=== PATIENT | female | born 1980 ===

== ENCOUNTER 2022-09-18 07:23 | Day surgery (SDC) | payer OTHER, SELFPAY ==
--- NOTE | 2022-09-17 13:08 | P.CONAN_ITS ---
Documented by User: La Ramsey NP 09/17/22 13:12 HPI - Anesthesia Eval Consult details Narrative: 42yo F for Upper Endoscopy and Colonoscopy [facility] Past Medical History Medical History (Updated 09/17/22 @ 13:10 by La Ramsey NP) Anemia Autoimmune disease Constipation Diabetes Heavy menses Seizure Surgical History Surgical History (Updated 09/18/22 @ 08:04 by Ashley Hartmann) H/O carpal tunnel repair H/O colonoscopy H/O elbow surgery H/O esophagogastroduodenoscopy Previous section Social History Social History Patient Tobacco Use Status: Never used Tobacco Use of substances other than those prescribed or required for medical reasons: No Are you DNR?: No Advance Directives: No Advance Directives Information Provided: Yes Meds Allergies Allergy/AdvReac Type Severity Reaction Status Date / Time citalopram [From Celexa] Allergy Unknown Seizure Verified 09/18/22 07:59 Home Medications Medication Instructions Recorded Confirmed Last Taken Type lamotrigine 25 mg tablet 3 tab PO BID 09/17/22 09/18/22 09/17/22 History metformin 500 mg tablet,extended 500 mg PO DAILY 09/17/22 09/18/22 09/16/22 History release 24 hr Exam Exam Date and Time: September 17, 2022 1308 Documented by User: Jn Grimes MD 09/18/22 13:24 [facility] Past Medical History Medical History (Updated 09/17/22 @ 13:10 by La Ramsey NP) Anemia Autoimmune disease Constipation Diabetes Heavy menses Seizure Functional capacity: independent ambulation Family History Family history of problems with anesthesia: No Surgical History Surgical History (Updated 09/18/22 @ 08:04 by Ashley Hartmann) H/O carpal tunnel repair H/O colonoscopy H/O elbow surgery H/O esophagogastroduodenoscopy Previous section History of Problems with Anesthesia: No Social History Social History Patient Tobacco Use Status: Never used Tobacco Use of substances other than those prescribed or required for medical reasons: No Are you DNR?: No Advance Directives: No Advance Directives Information Provided: Yes Meds Allergies Allergy/AdvReac Type Severity Reaction Status Date / Time citalopram [From Celexa] Allergy Unknown Seizure Verified 09/18/22 07:59 Home Medications Medication Instructions Recorded Confirmed Last Taken Type lamotrigine 25 mg tablet 3 tab PO BID 09/17/22 09/18/22 09/17/22 History metformin 500 mg tablet,extended 500 mg PO DAILY 09/17/22 09/18/22 09/16/22 History release 24 hr Exam Airway Mallampati Class: III TM Dist: >3cm Neck ROM: Full Loose/Missing/Broken Teeth: Yes Heart: S1,S2 Lungs: b/l breath sounds Assessment and Plan Assessment Anesthesia Assessment: Anesthesia Plan Discussed and Chart Reviewed Final Anesthetic Review Family History of Problems with Anesthesia: No History of Problems with Anesthesia: No NPO: Yes ASA Class: II Final Preanesthetic Review: Meds/Allgs Chart Reviewed, Consent Obtained/Reviewed and Anes Risks/Benef Reviewed Patient Risk: Intermediate Procedure Risk: Intermediate Anesthetic Plan Anesthetic Plan: MAC: Disposition: Standard PACU
[2022-09-18 08:04] VITALS: BP 108/48; PULSE 77; RESP 16; TEMP 36.5; O2SAT 100; BMI 23.3
[2022-09-18 08:13] LABS: Glucose, Whole Blood 193 mg/dL (60-115)
[2022-09-18 08:13] LABS: UPreg QC Valid YES; Urine Pregnancy NEGATIVE (NEGATIVE)
[2022-09-18] MEDS: Lactated Ringers 1,000 ML 100 ML IVCONT (08:24)
[2022-09-18] MEDS: Sodium Phosphate,Mono-Dibasic 133 ML ENEMA PR (09:05)
--- NOTE | 2022-09-18 10:34 | P.BOP_ITS ---
Brief Operative Note Date of Service: 09/18/22 Pre-op diagnosis: Iron deficiency anemia, Constipation Post-op diagnosis: other (R/O celiac disease, R/O H.pylori, Internal hemorrhoids) Procedure: EGD with biopsies, Colonoscopy to the cecum and TI Surgeon: Josh Lloyd Anesthesia: MAC Was an Circular Ripsaw Operator used for this Procedure?: No Estimated blood loss (mL): 2.0 Pathology: other (A. Descending duodenum B. Gastric antrum) Condition: stable Disposition: PACU
[2022-09-18 10:35] VITALS: BP 95/64; PULSE 67; RESP 17; TEMP 36.2; O2SAT 100
[2022-09-18 10:50] VITALS: BP 97/59; PULSE 54; RESP 16; TEMP 36.1; O2SAT 100
[2022-09-18 11:05] VITALS: BP 98/58; PULSE 57; RESP 16; TEMP 36.6; O2SAT 100
--- NOTE | 2022-09-18 21:53 | OP_ITS ---
SURGEON: Josh Lloyd MD INDICATIONS: The patient presents for evaluation of iron-deficiency anemia, chronic constipation, and question of colon polyps seen on video capsule study. Full consent has been obtained from her for this, including risks of bleeding and perforation. PREOPERATIVE DIAGNOSIS: POSTOPERATIVE DIAGNOSIS: PROCEDURE PERFORMED: Esophagogastroduodenoscopy with biopsies and colonoscopy to the cecum and terminal ileum. ESTIMATED BLOOD LOSS: COMPLICATIONS: ANESTHESIA: Monitored anesthesia care. ASSISTANTS: SPECIMENS: PREOPERATIVE DIAGNOSES: Iron-deficiency anemia, chronic constipation, question of polyp seen on video capsule study. POSTOPERATIVE DIAGNOSES: Iron-deficiency anemia, chronic constipation, question of polyp seen on video capsule study, rule out celiac disease, internal hemorrhoids. DESCRIPTION OF PROCEDURE: The patient was placed in the left lateral decubitus position. The Olympus video gastroscope was passed in the posterior oropharynx and upper esophagus under direct vision. The scope was passed slowly to the distal esophagus. The gastroesophageal junction appeared at 36 cm. There was no esophagitis nor Schafer's esophagus. The scope entered into the stomach. The scope was advanced to the pylorus and the duodenum was cannulated to the descending portion. The duodenum including the bulb appeared normal without mass or ulceration. Biopsies were obtained from the second and third portions of duodenum. The scope was withdrawn back into the stomach. The gastric antrum and body appeared normal. Good peristalsis. Biopsies were obtained from the gastric antrum. The scope was retroflexed visualizing the proximal stomach carefully, which appeared normal, without any sign of mass or ulceration. The scope was straightened and withdrawn back to the esophagus. The esophageal mucosa appeared normal. The scope was withdrawn from the patient. She was turned around for the colonoscopy. The digital rectal exam revealed no abnormalities. The Olympus video pediatric colonoscope was entered into the rectum and advanced easily to the cecum. Once in the cecum, I did identify normal-appearing cecal pouch after lot of irrigation and suctioning. The terminal ileum was cannulated and appeared normal. The scope was withdrawn back in the colon. The entire cecum and ileocecal valve appeared normal. The scope was slowly withdrawn assessing all mucosal surfaces carefully. Preparation in various parts of colon was somewhat suboptimal due to a lot of liquid stool which had to be irrigated and suctioned away as best as possible, but did not clear it completely. I did not visualize any sign of colitis, polyps, nor angiodysplasia. Small lesions may have been missed due to the limited prep in different parts of the colon. The ascending colon was for the most part well inspected and I did not visualize any sign of polyp as has had been suggested on the small bowel video capsule study. In the rectum, the scope was retroflexed visualizing internal hemorrhoids, but no other pathology. The rectal mucosa appeared normal. Scope was straightened and withdrawn from with the patient. She tolerated the procedure well and was returned to recovery area in stable condition. IMPRESSION: 1. Rule out celiac disease. 2. Rule H. pylori. 3. Internal hemorrhoids. PLAN: The results of the biopsies will be checked. I recommend a repeat colonoscopy in 5 years for further screening. She will otherwise continue her bowel regimen to see that could help relieve some constipation. She will be followed up in the office for a visit. MD JUSTIN Cash/MAKAYLA / [id number] MTDD
== END 2022-09-18 11:35 | disposition home or self-care (01) ==
PROVIDERS: Nurse Practitioner; PCP Family Medicine; Visit Provider Internal Medicine
PROC: (CPT 45378; principal; 2022-09-18 08:30)
DX: D50.9 Iron deficiency anemia, unspecified (principal); K59.09 Other constipation; K63.5 Polyp of colon; K64.8 Other hemorrhoids; N92.0 Excessive and frequent menstruation with regular cycle; M35.9 Systemic involvement of connective tissue, unspecified; G40.909 Epilepsy, unspecified, not intractable, without status epilepticus; E11.9 Type 2 diabetes mellitus without complications; Z79.84 Long term (current) use of oral hypoglycemic drugs; Z79.899 Other long term (current) drug therapy; Z88.8 Allergy status to other drugs, medicaments and biological substances; Z86.19 Personal history of other infectious and parasitic diseases
CPT/HCPCS: 45378; 43239; 81025; 82947; 88305; 88342; J2250; J3010